=== PATIENT | female | born 1965 | race Caucasian/White ===

== ENCOUNTER 2018-06-23 08:30 | Day surgery (SDC) | payer OTHER ==
[2018-06-23] MEDS ORDERED: KETOROLAC 30 MG/ML VIAL ONE (10:18)
[2018-06-23] MEDS ORDERED: LIDOCAINE 2% 100 MG/5 ML UJET TP ONE (10:18)
== END 2018-06-23 11:35 | disposition home or self-care (01) ==
LOC: MDS 08:30 → MMU 08:30 → MDS 11:35
PROVIDERS: ATTEND Internal Medicine Gastroenterology
DX: Z12.11 Encounter for screening for malignant neoplasm of colon (principal); K57.30 Diverticulosis of large intestine without perforation or abscess without bleeding; I10 Essential (primary) hypertension; E66.9 Obesity, unspecified; Z98.890 Other specified postprocedural states; Z72.89 Other problems related to lifestyle; Z79.899 Other long term (current) drug therapy
CPT/HCPCS: 45378; J1885